=== PATIENT | male | born 1970 | race Caucasian/White ===

== ENCOUNTER 2025-07-02 14:57 | Emergency (ER) | payer OTHER, SELFPAY ==
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
--- NOTE | ~2025-07-02 | XR_ITS ---
EXAMINATION: XR ankle LT min 3V DATE: 07/02/2025 15:52 INDICATION: Rolled ankle. Pain and swelling TECHNIQUE: 4 images of the left ankle were obtained COMPARISON: None. FINDINGS: Mildly displaced fracture of the base of the fifth metatarsal with adjacent soft tissue swelling. Talar dome is unremarkable. Soft tissue swelling about the left ankle. There is a 6 x 2 mm ossific density about the distal tip of the lateral malleolus. Differential includes osteophyte or avulsion fracture of indeterminate age. Correlate for point tenderness. Small plantar calcaneal spur. Bones appear osteopenic. Degenerative change in the dorsum of the midfoot and hindfoot. Indeterminant 2 cm lucency in the anterior calcaneus. IMPRESSION: 1. Mildly displaced fracture of the base of the fifth metatarsal with adjacent soft tissue swelling. 2. There is a 6 x 2 mm ossific density about the distal tip of the lateral malleolus. Differential includes osteophyte or avulsion fracture of indeterminate age. Correlate for point tenderness. 3. Indeterminant 2 cm lucency in the anterior calcaneus. Reviewed, dictated and finalized at location Q. IMPRESSION: 1. Mildly displaced fracture of the base of the fifth metatarsal with adjacent soft tissue swelling. 2. There is a 6 x 2 mm ossific density about the distal tip of the lateral mall eolus. Differential includes osteophyte or avulsion fracture of indeterminate a ge. Correlate for point tenderness. 3. Indeterminant 2 cm lucency in the anterior calcaneus.
--- OUTSIDE RECORDS SUMMARY | 2025-07-02 07:39 | XMS_ITS | Encounter Summary ---
Author Organization [facility] Healthcare Address [address] [place] [address] Care Team Providers Care Damage Assessor Name Role Phone Louis Ley PT Unavailable Unavailable Luis Strange NP Unavailable [phone] Rod uDran MD Primary Care Provi gabby Reason for Referral * MRI/CAT/PET Scan (Routine) - Pending Review Specialty Diagnoses / Procedures Referred By Zoey diaz Referred To Contact Radiology Diagnoses Vestibular schwannoma (HCC) Procedures Radiology Event Bogdan Nguyen MD [address] [address] Phone: tel: fax: Referral ID Status Reason Start Date Expiration Date V isits Requested Visits Authorized [id number] Pending Review 07/02/2025 08/01/2026 1 1 * MRI/CAT/PET Scan (Routine) - Closed Specialty Diagnoses / Procedures Referred By Zoey diaz Referred To Contact Radiology Diagnoses Vestibular schwannoma (HCC) Procedures MRI Internal Auditory Canal incl Brain W WO Martín Arroyo MD [address] [address] Phone: tel: fax: [address] [phone] Referral ID Status Reason Start Date Expiration Date Visits Re quested Visits Authorized [id number] Closed 06/29/2024 07/29/2025 1 1 Reason for Visit * MRI/CAT/PET Scan (Routine) - Closed Specialty Diagnoses / Procedures Referred By Zoey t Referred To Contact Radiology Diagnoses Vestibular schwannoma (HCC) Procedures MRI Internal Auditory Canal incl Brain W WO Contrast Martín Batres MD [address] [place] [address] Phone: tel: fax: [address] [phone] Referral ID Status Reason Start Date Expiration Date Visits Re quested Visits Authorized [id number] Closed 06/29/2024 07/29/2025 1 1 Encounter Details Date Type Department Care Team (Latest Contact Info) Description 07/02/2025 7:39 AM CDT Hospital Encounter [facility] [address] [place] [address] Vestibular schwannoma (HCC) Social History Tobacco Use Types Packs/Day Years Used Date Smoking Tobacco: Never Smokeless Tobacco: Never Alcohol Use Standard Drinks/Week Comments Yes 0 (1 standard drink = 0.6 oz pur e alcohol) AUDIT-C Answer Date Recorded Q1: How often do you have a drink containing alc ohol? 2-4 times a month 06/22/2023 Q2: How many drinks containi ng alcohol do you have on a typical day when you are drinking? 7 to 9 06/22/2023 Frequency of Binge Drinking Not on file 05/29 PHQ-2 Answer Date Recorded PHQ-2 Total Score (If total score is 3 or more points, staff should administer the PHQ-9) 0 08/21/2024 Personal Safety Answer Date Recorded Have you ever been in or are you currently in a harmful physical or emotional relationship or is someone making you feel afraid or unsafe? 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 Gender Identity Not on file Sexual Orientation Not on file documented as of this encounter Plan of Treatment Not on file documented as of this encounter Procedures Procedure Name Priority Date/Time Associated Diagnosis Comments RADIOLOGY EVENT Schedule Routine, Read Routine (OP Routine) 07/02/2025 10:13 AM CDT Vestibular schwannoma (HCC) MRI INTERNAL AUDITORY CANAL INCL BRAIN W WO CONTRAST Schedule Routine, Read Routine (OP Routine) 07/02/2025 10:13 AM CDT Vestibular schwannoma (HCC) documented in this encounter Results * Radiology Event (07/02/2025 10:13 AM CDT) Anatomical Region Laterality Modality Magnetic Resonan ce 07/02/2025 11:5 9 AM CDT Impressions 07/02/2025 12:07 PM CDT Left ankle musculoskeletal injury as above while getting off a MRI table, following completion of an outpatient MRI. Instructions given to patient regarding event: yes Dictated by: Bogdan Nguyen MD The radiology attending physician has personally reviewed this study, and had reviewed and/or edited this written report and agrees with it. Electronically signed by: Rickey Jonas M.D., MPH Narrative 07/02/2025 12:07 PM CDT EXAMINATION: General Radiology Event Report DATE of EVENT: 07/02/2025 I was asked to see Vik Capone after a left ankle injury. Event: This was a other, see below: The patient underwent a MRI of the internal auditory canals on [facility] this morning. The patient reported that while getting off the MRI table, he rolled his left ankle. He stated that he had pain primarily on the lateral side of his left ankle as well as the dorsum of his left foot, which was worse with palpation and with weightbearing. His vitals were within normal limits. On exam, he had tenderness primarily over the lateral malleolus extending to the dorsum of the foot. The patient had 4 out of 5 strength in dorsiflexion and plantarflexion of his left ankle. He was neurovascularly intact in the left ankle and foot. He had a mild limp while walking around the MRI holding area. There was no overlying erythema. There was 1+ edema over the left lateral ankle. 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 He was offered 3 options: further evaluation in the emergency department, outpatient evaluation in a urgent care, or close follow-up with his primary care physician. After discussing the benefits of each, the patient and his elected for close follow up with his primary care physician. The patient was provided with ice packs for cooling. He was brought to his next appointment at [facility] by wheelchair by the staff. Actions: See above The highest level of care provided Vital performed/Monitoring Procedure Note Rickey Jonas MD - 07/02/2025 EXAMINATION: General Radiology Event Report DATE of EVENT: 07/02/2025 I was asked to see Vik Capone after a left ankle injury. Event: This was a other, see below: The patient underwent a MRI of the internal auditory canals on [facility] this morning. The patient reported that while getting off the MRI table, he rolled his left ankle. He stated that he had pain primarily on the lateral side of his left ankle as well as the dorsum of his left foot, which was worse with palpation and with weightbearing. His vitals were within normal limits. On exam, he had tenderness primarily over the lateral malleolus extending to the dorsum of the foot. The patient had 4 out of 5 strength in dorsiflexion and plantarflexion of his left ankle. He was neurovascularly intact in the left ankle and foot. He had a mild limp while walking around the MRI holding area. There was no overlying erythema. There was 1+ edema over the left lateral ankle. 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 He was offered 3 options: further evaluation in the emergency department, outpatient evaluation in a urgent care, or close follow-up with his primary care physician. After discussing the benefits of each, the patient and his elected for close follow up with his primary care physician. The patient was provided with ice packs for cooling. He was brought to his next appointment at [facility] by wheelchair by the staff. Actions: See above The highest level of care provided Vital performed/Monitoring IMPRESSION: Left ankle musculoskeletal injury as above while getting off a MRI table, following completion of an outpatient MRI. Instructions given to patient regarding event: yes Dictated by: Bogdan Nguyen MD The radiology attending physician has personally reviewed this study, and had reviewed and/or edited this written report and agrees with it. Electronically signed by: Rickey Jonas M.D., MPH Bogdan Nguyen MD IMG CT PROCEDURES Final Result * MRI Internal Auditory Canal incl Brain W WO Contrast (07/02/2025 10:13 AM CDT) Anatomical Region Laterality Modality Head and Neck N/A Magnetic Resonan ce 07/02/2025 10:3 1 AM CDT Impressions 07/02/2025 10:48 AM CDT No significant interval change in size of left vestibular schwannoma. Dictated by: Aldo Adair M.D. The radiology attending physician has personally reviewed this study, and had reviewed and/or edited this written report and agrees with it. Electronically signed by: Chayo Vick M.D. Narrative 07/02/2025 10:48 AM CDT EXAMINATION: Magnetic resonance imaging (MRI) of the brain and brainstem without and with contrast HISTORY: Vestibular schwannoma TECHNIQUE: Multiplanar multi-weighted MRI of the brain and brainstem was performed without and with intravenous contrast using the general brain protocol. Additionally sequences detailing the internal auditory canals and posterior fossa were acquired as a part of the internal auditory canal protocol. Contrast information: 26 mL Gadoterate Meglumine IV COMPARISON: MRI 06/29/2024 FINDINGS: No significant change in size of enhancing ovoid lesion within the left internal auditory canal measuring approximately 6 x 11 x 7 mm (AP by transverse by craniocaudal), previously 5 x 9 x 7 mm, compatible with a vestibular schwannoma. The lesion extends to the IAC fundus. The right internal auditory canal and bilateral cerebellopontine angles are unremarkable. The upper cervical spinal cord and spine are normal. The scalp and calvarium are normal. The superior sagittal sinus demonstrates normal venous flow. The corpus callosum is normal in shape and signal intensity. The posterior fossa is unremarkable. The pituitary and sella are normal. The brainstem and craniocervical junction are unremarkable. Diffusion weighted images reveal no hyperintensities to suggest acute cerebral infarction. The susceptibility weighted sequences reveal no evidence of acute or chronic hemorrhage. The ventricles are normal in size and position without evidence of hydrocephalus. Bilateral maxillary retention cysts, larger on the left. The visualized portions of the mastoids are unremarkable. The orbits appear normal. Normal flow voids are demonstrated in the carotid arteries and basilar artery. Procedure Note Chayo Vick MD - 07/02/2025 EXAMINATION: Magnetic resonance imaging (MRI) of the brain and brainstem without and with contrast HISTORY: Vestibular schwannoma TECHNIQUE: Multiplanar multi-weighted MRI of the brain and brainstem was performed without and with intravenous contrast using the general brain protocol. Additionally sequences detailing the internal auditory canals and posterior fossa were acquired as a part of the internal auditory canal protocol. Contrast information: 26 mL Gadoterate Meglumine IV COMPARISON: MRI 06/29/2024 FINDINGS: No significant change in size of enhancing ovoid lesion within the left internal auditory canal measuring approximately 6 x 11 x 7 mm (AP by transverse by craniocaudal), previously 5 x 9 x 7 mm, compatible with a vestibular schwannoma. The lesion extends to the IAC fundus. The right internal auditory canal and bilateral cerebellopontine angles are unremarkable. The upper cervical spinal cord and spine are normal. The scalp and calvarium are normal. The superior sagittal sinus demonstrates normal venous flow. The corpus callosum is normal in shape and signal intensity. The posterior fossa is unremarkable. The pituitary and sella are normal. The brainstem and craniocervical junction are unremarkable. Diffusion weighted images reveal no hyperintensities to suggest acute cerebral infarction. The susceptibility weighted sequences reveal no evidence of acute or chronic hemorrhage. The ventricles are normal in size and position without evidence of hydrocephalus. Bilateral maxillary retention cysts, larger on the left. The visualized portions of the mastoids are unremarkable. The orbits appear normal. Normal flow voids are demonstrated in the carotid arteries and basilar artery. IMPRESSION: No significant interval change in size of left vestibular schwannoma. Dictated by: Aldo Adair M.D. The radiology attending physician has personally reviewed this study, and had reviewed and/or edited this written report and agrees with it. Electronically signed by: Chayo Vick M.D. Martín Batres MD [facility] [place] PROCEDURES Enriqueta l Result documented in this encounter Visit Diagnoses Diagnosis Vestibular schwannoma (HCC) Benign neoplasm of cranial nerves documented in this encounter Administered Medications Inactive Administered Medications - up to 3 most recent administrations Medication Order MAR Action Action Date Dose Rate Site gadoterate meglumine injection 26 mL 26 mL, intravenous, Once in imaging, contrast, Starting on 07/02/25 at 0919, For 1 dose Contrast Given 07/02/2025 9:19 AM CDT 26 mL documented in this encounter Orders Medications Ordered That Tyson ht Not Have Been Administered Count Last Ordered Date First Ordered Date gadoterate meglumine injection 26 mL 1 02/2025 documented in this encounter Care Teams Damage Assessor Relationship Specialty Start Date End Date Rod Duran MD [address] [place] [address] PCP - General Family Practice 07/02/25 Louis Ley, PT Physical Therapist Physical Therapy 04/20/22 Luis Strange, ROBERTH [address] [place] [address] [address] [place] [address] Nurse Practitioner Nurse Practitioner 05/07/22 documented as of this encounter
--- OUTSIDE RECORDS SUMMARY | 2025-07-02 08:29 | XMS_ITS | Encounter Summary ---
Author Organization [facility] Healthcare Address [address] [place] [address] Care Team Providers Care Perennial House Manager Name Role Phone Louis Ley PT Unavailable Unavailable Luis Strange NP Unavailable Rod Duran MD Primary Care Provi gabby Reason for Referral * Diagnostic Imaging (Routine) - Closed Specialty Diagnoses / Procedures Referred By Zoey diaz Referred To Contact Diagnoses Vestibular schwannoma (HCC) Procedures XR Hand Left 2 Views Martín Batres MD [address] [address] Phone: tel: fax: [address] [address] Referral ID Status Reason Start Date Expiration Date Visits Re quested Visits Authorized [id number] Closed 07/02/2025 08/01/2026 1 1 Reason for Visit * Diagnostic Imaging (Routine) - Closed Specialty Diagnoses / Procedures Referred By Zoey diaz Referred To Contact Diagnoses Vestibular schwannoma (HCC) Procedures XR Hand Left 2 Views Martín Batres MD [address] [address] Phone: tel: fax: [address] [phone] Referral ID Status Reason Start Date Expiration Date Visits Re quested Visits Authorized [id number] Closed 07/02/2025 08/01/2026 1 1 Encounter Details Date Type Department Care Team (Latest Contact Info) Description 07/02/2025 8:29 AM CDT Hospital Encounter [facility]) [facility] [place] [address] Vestibular schwannoma (HCC) Social History Tobacco Use [...] on file 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 Gender Identity Not on file Sexual Orientation Not on file documented as of this encounter Plan of Treatment Not on file documented as of this encounter Procedures Procedure Name Priority Date/Time Associated Diagnosis Comments XR HAND LEFT 2 VIEWS Schedule Routine, Read Routine (OP Routine) 07/02/2025 8:41 AM CDT Vestibular schwannoma (HCC) documented in this encounter Results * XR Hand Left 2 Views (07/02/2025 8:41 AM CDT) Anatomical Region Laterality Modality Upper Extremities, Hand Left Computed Radiography 07/02/2025 10:2 9 AM CDT Impressions 07/02/2025 10:30 AM CDT Small radiodense BB at the volar side of the 3rd metacarpal soft tissue. Dictated by: Matti Iraheta M.D. The radiology attending physician has personally reviewed this study, and had reviewed and/or edited this written report and agrees with it. Electronically signed by: Kvng Sneed M.D. Narrative 07/02/2025 10:30 AM CDT EXAMINATION: XR HAND LEFT 2 VIEWS HISTORY: Evaluation of foreign body. COMPARISON: No prior relevant examinations are available for comparison. FINDINGS: 2 views of the left elbow were submitted for interpretation. There is a small radiodense BB at the volar side of the 3rd metacarpal soft tissue. 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 No acute fracture or dislocation of left hand. Procedure Note Kvng Sneed MD - 07/02/2025 EXAMINATION: XR HAND LEFT 2 VIEWS HISTORY: Evaluation of foreign body. COMPARISON: No prior relevant examinations are available for comparison. FINDINGS: 2 views of the left elbow were submitted for interpretation. There is a small radiodense BB at the volar side of the 3rd metacarpal soft tissue. 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 No acute fracture or dislocation of left hand. IMPRESSION: Small radiodense BB at the volar side of the 3rd metacarpal soft tissue. Dictated by: Matti Iraheta M.D. The radiology attending physician has personally reviewed this study, and had reviewed and/or edited this written report and agrees with it. Electronically signed by: Kvng Sneed M.D. Tommie Costa MD IMG XR PROCEDURES Final Result documented in this encounter Visit Diagnoses Diagnosis Vestibular schwannoma (HCC) Benign neoplasm of cranial nerves documented in this encounter Care Teams Perennial House Manager Relationship Specialty Start Date End Date Rod Duran MD [address] [place] [address] PCP - General Family Practice 07/02/25 Louis Ley, ARNOLD Physical Therapist Physical Therapy 04/20/22 Luis Strange, ROBERTH [address] [place] [address] [address] [place] [address] Nurse Practitioner Nurse Practitioner 05/07/22 documented as of this encounter
--- OUTSIDE RECORDS SUMMARY | 2025-07-02 09:00 | XMS_ITS | Encounter Summary ---
Author Organization [facility] Address [address] [place] [address] Phone Care Team Providers Care Race Starter Name Role Phone Louis Ley PT Unavailable Unavailable Luis Strange NP Unavailable [phone] Rod Duran MD Primary Care Provi gabby Encounter Details Date Type Department Care Team (Latest Contact Info) Description 07/02/2025 9:00 AM CDT Procedure visit [facility] Medicine Otolaryngology [address] [facility] 11th [place] [address] [place] [address] Sensorineural hearing loss, asymmetrical (Primary Dx) Social History Tobacco Use Types Packs/Day Years [...] on file 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 - 07/02/2025 9:00 AM CDT Images from the original note were not included. Procedures PATIENT: Vik Capone : 1970 TYPE OF SERVICE: Audiologic Evaluation DATE OF SERVICE: 07/02/2025 Referral Source: Jerzy Mcgovern MD Audiogram completed per physician referral. See scanned audiogram for results. Detailed medical history was obtained by medical claims analyst and reviewed - see notes on audiogram for brief history. Results were reviewed with the patient by irrigator valve pipe and/or physician. Tests performed: basic comprehensive audiometry documented in this encounter Plan of Treatment Not on file documented as of this encounter Procedures Procedure Name Priority Date/Time Associated Diagnosis Comments AUDBASE RESULTS 07/02/2025 10:44 AM CDT documented in this encounter Results * AudBase Results (07/02/2025 10:44 AM CDT) Provider Scanning AUDIOLOGY SERVICES ORDERABLES Final Result documented in this encounter Visit Diagnoses Diagnosis Sensorineural hearing loss, asymmetrical- Primary documented in this encounter Care Teams Race Starter Relationship Specialty Start Date End Date Rod Duran MD [address] [place] [address] PCP - General Family Practice 07/02/25 Louis Ley, PT Physical Therapist Physical Therapy 04/20/22 Luis Strange NP [address] [place] [address] [address] [place] [address] Nurse Practitioner Nurse Practitioner 05/07/22 documented as of this encounter
--- OUTSIDE RECORDS SUMMARY | 2025-07-02 09:20 | XMS_ITS | Encounter Summary ---
Author Organization [facility] Address [address] [place] [address] Phone Care Team Providers Care Hospital Pharmacist Name Role Phone Louis Ley PT Unavailable Unavailable Luis Strange BRIDAL SERVICE SALES AND MANAGEMENT Unavailable [phone] Rod Duran MD Primary Care Provi gabby Reason for Referral * MRI/CAT/PET Scan (Routine) - Pending Review Specialty Diagnoses / Procedures Referred By Zoey diaz Referred To Contact Radiology Diagnoses Vestibular schwannoma (HCC) Procedures MRI Internal Auditory Canal incl Brain W WO Contrast Jerzy Mcgovern MD [address] [place] [address] Phone: tel: fax: [facility] [address] [place] [address] Referral ID Status Reason Start Date Expiration Date V isits Requested Visits Authorized [id number] Pending Review 07/02/2025 08/01/2026 1 1 * Consultation (Routine) - Pending Review Specialty Diagnoses / Procedures Referred By Zoey diaz Referred To Contact Audiology Diagnoses Vestibular schwannoma (HCC) Jerzy Mcgovern MD [address] [place] [address] Phone: tel: fax: [facility] (All Locations) Referral ID Status Reason Start Date Expiration Date Visits Requested Visits Authorized [id number] Pending Review Specialty Services Required 07/02/2025 08/01/2026 1 1 Question Answer Please select the performing region: [facility] (All Locations) [[id number]] Are you referring for hearing device consultation? No Is this for Vestibular Testing? Yes Type? Specific Testing:, Standard Vestibular Testing: VOG/Rotational Chair/vHit (2 hours) What Specific Vestibular Testing Do You Need? Vestibular Evoked Myogenic Potential (VEMP) # of visits: 1 Comments VS Reason for Visit * Reason Comments Follow-up MRI today Encounter Details Date Type Department Care Team (Late st Contact Info) Description 07/02/2025 9:20 AM CDT Office Visit [facility] ([facility] - 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 Gender Identity Not on file Sexual Orientation Not on file documented as of this encounter Last Filed Vital Signs Vital Sign Reading Time Taken Comments Blood Pressure - - Pulse - - Temperature - - Respiratory Rate - - Oxygen Saturation - - Inhaled Oxygen Concentration - - Weight 136.1 kg (300 lb) 07/02/2025 11:10 AM CDT Height 190.5 cm (6' 3) 07/02/2025 11:10 AM CDT Body Mass Index 37.5 07/02/2025 11:10 AM CDT documented in this encounter Plan of Treatment Scheduled Orders Name Type Priority Associated Diagnoses Orde r Schedule MRI Internal Auditory Canal incl Brain W WO Contrast Imaging Schedule Routine, Read Routine (OP Routine) Vestibular schwannoma (HCC) Expected: 07/02/2026, Expires: 09/30/2026 Scheduled Referrals Name Type Priority Associated Diagnoses Order Schedule Ambulatory referral to Audiology (ADULT) Outpatient Referral Routine Vestibular schwannoma (HCC) Expected: 07/16/2025 (Approximate), Expires: 07/02/2026 documented as of this encounter Visit Diagnoses Diagnosis Vestibular schwannoma (HCC)- Primary Benign neoplasm of cranial nerves documented in this encounter Care Teams Hospital Pharmacist Relationship Specialty Start Date End Date Rod Duran MD [address] [place] [address] PCP - General Family Practice 07/02/25 Louis Ley PT Physical Therapist Physical Therapy 04/20/22 Luis Strange NP [address] [place] [address] [address] [place] [address] Nurse Practitioner Nurse Practitioner 05/07/22 documented as of this encounter
[2025-07-02 15:10] VITALS: BP 137/92; PULSE 95; RESP 20; TEMP 36.6; O2SAT 97
--- NOTE | 2025-07-02 15:35 | ED_ITS ---
HPI - Extremity Injury (Lower) General Chief Complaint: Extremity Injury, Lower Stated Complaint: left foot injury Time Seen by Provider: 07/02/25 15:30 Source: patient, family () and RN notes reviewed Mode of arrival: ambulatory Limitations: no limitations History of Present Illness HPI Narrative: 55-year-old male patient presents today complaining of pain to the lateral left ankle and foot. Today he was at [facility] getting off an MRI table when he fainted, rolling his ankle/foot. He did not have a head injury. Continued with the rest of his appointments today but wanted to come in for e valuation of his ankle and foot. Denies numbness or tingling. Currently rates his pain 04/05. He has taken some Aleve today with some improvement. Related Data Home Medications ?Medication ?Instructions ?Recorded ?Confirmed ?Last Taken ?Type amlodipine 10 mg tablet mg 07/02/25 Unknown History triamterene 37.5 tablet 07/02/25 Unknown His tory mg-hydrochlorothiazide 25 mg tablet Allergies Allergy/AdvReac Type Severity Reaction Status Date / Time No Known Allergies Allergy Verified 07/02/25 15:11 [facility], [facility] Past Medical History Medical History (Updated 07/02/25 @ 16:28 by Cristel Olguin, [facility], ) Hypertension Acoustic neuroma Comments At time of signature, I have reviewed and agree with nursing past medical, surgical, social and family history unless otherwise noted. Please see nursing chart for further information. There is no relevant family history pertinent to the presenting complaint Exam Narrative: GENERAL: Well-appearing, well-nourished, and in no acute distress. HEAD: Normocephalic, atraumatic. EYES: EOMI. No redness or drainage. Conjunctivae normal. ENT: Mucous membranes pink and moist. NECK: Normal AROM. CHEST: No respiratory distress. EXTREMITIES: Left lower leg: Mild to moderate swelling of the lateral malleolus extending to the mid lateral foot with mild ecchymosis. These areas are tender to palpation as well. No deformity noted. Distal sensation intact. Capillary refill normal. Pedal pulse normal. Full range of motion of toes and ankle. No tenderness to the remainder of the foot or medial ankle. SKIN: Warm, dry, no rash. Capillary refill normal. Normal skin turgor. NEURO: No focal deficits. Alert and oriented x3. Gait steady. PSYCH: Normal affect. No signs of depression or anxiety. Course Course Level of Care: Express Care Visit Vital Signs Vital signs: Vital Signs Temperature 97.9 F 07/02/25 15:10 Pulse Rate 95 07/02/25 15:10 Respiratory Rate 20 07/02/25 15:10 Blood Pressure 137/92 H 07/02/25 15:10 Pulse Oximetry 97 07/02/25 15:10 Oxygen Delivery Room Air 07/02/25 15:10 Temperature 97.9 F 07/02/25 15:10 Pulse Rate 95 07/02/25 15:10 Respiratory Rate 20 07/02/25 15:10 Blood Pressure 137/92 H 07/02/25 15:10 Pulse Oximetry 97 07/02/25 15:10 Oxygen Delivery Room Air 07/02/25 15:10 Reviewed MDM - Extremity Injury (Lower) MDM Narrative Medical decision making narrative: 55-year-old male patient presents today complaining of pain to the lateral left ankle and foot. Today he was at [facility] getting off an MRI table when he fainted, rolling his ankle/foot. He did not have a head injury. Continued with the rest of his appointments today but wanted to come in for evaluation of his ankle and foot. Took Aleve with some improvement. Upon exam, patient has moderate swelling about the ankle, tenderness and ecchymosis laterally extending to the lateral foot. Neurovascularly intact. X-ray shows mildly displaced fracture of base of the 5th metatarsal as well an avulsion fracture of the lateral malleolus. Short leg OCL applied, crutches provided. Patient has seen Dr. Will previously and would like to return to him for this injury. Disc and reports provided. Vital signs stable. Anticipatory guidance given. Differential Diagnosis Differential diagnosis: Likely ankle sprain and strain, ankle fracture and other (Foot sprain, foot fracture, contusion) Imaging Data Radiologist's impression: ITS Impressions Ankle X-Ray 07/02/25 15:53 IMPRESSION: 1. Mildly displaced fracture of the base of the fifth metatarsal with adjacent s oft tissue swelling. 2. There is a 6 x 2 mm ossific density about the distal tip of the lateral malleolus. Differential includes osteophyte or avulsion fracture of indeterminate age. Correlate for point tenderness. 3. Indeterminant 2 cm lucency in the anterior calcaneus. Foot X-Ray 07/02/25 15:55 Impression: Fifth metatarsal fracture Critical Care Time Critical Care Time Critical Care Time: No Discharge Plan Discharge Clinical Impression: Closed fracture of fifth metatarsal bone of left foot Qualifiers: Encounter type: initial encounter Fracture alignment: displaced Qualified Code(s): S92.352A - Displaced fracture of fifth metatarsal bone, left foot, initial encounter for closed fracture Avulsion fracture of lateral malleolus of left fibula Qualifiers: Encounter type: initial encounter Fracture type: closed Qualified Code(s): S82.62XA - Displaced fracture of lateral malleolus of left fibula, initial encounter for closed fracture Patient Disposition: Home Condition: Stable Instructions: Foot Fracture in Adults (ED), Avulsion Fracture (ED) Additional Instructions: Your x-ray shows fracture in your foot as well as a small chip fracture on the outside of your ankle. You have been placed in a temporary splint. Please keep this dry and intact until follow-up with orthopedics. Elevate and ice your foot/ankle. Take Tylenol or ibuprofen for pain, if able. Patient Language: [place] Prescriptions: No Action amlodipine 10 mg tablet triamterene-hydrochlorothiazid 37.5-25 mg tablet Follow-up/Referrals: Roger,Rod Angelo MD [Primary Care Provider, Unknown] Stand Alone Forms: Work/School Release IP Time of Disposition: 16:43
--- OUTSIDE RECORDS SUMMARY | 2025-07-02 15:44 | XMS_ITS | Clinical Summary ---
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 7 Active amoxicillin (AMOXIL) 875 MG Tablet Take 875 mg by mouth 2 times daily. 0 Active mupirocin (BACTROBAN) 2 % OintmentIndicat ions:Laceration of right hand without foreign body, initial encounter Apply topically to right hand twice daily for 7 days 1 Tube 0 Active Social History Tobacco Use Types Packs/Day Years Used Date Smoking Tobacco: Never Smokeless Tobacco: Never Sex and Gender Information Value Date Recorded Sex Assigned at Not on file Legal Sex Male 3:12 AM [employer] Gender Identity Not on file Sexual Orientation Not on file Last Filed Vital Signs Vital Sign Reading Time Taken Comments Blood Pressure 144/99 04/21/2020 6:44 PM CDT Pulse 93 04/21/2020 6:44 PM CDT Temperature 37 C (98.6 F) 04/21/2020 6:44 PM CDT Respiratory Rate 16 04/21/2020 6:44 PM CDT Oxygen Saturation 97% 04/21/2020 6:44 PM CDT Inhaled Oxygen Concentration - - Weight 127 kg (280 lb) 04/21/2020 6:44 PM CDT Height - - Body Mass Index - - Plan of Treatment Health Maintenance Due Date Last Done Comments Hepatitis C Virus (HCV) Screening 1969 TdaP Immunization 1969 Hepatitis B Immunization (1 of 3 - 19+ 3-dose series) 1988 Cologuard 2014 Colonoscopy 2014 Colorectal Cancer Screening 2014 Immunochemical Fecal Occult Blood 2014 Pneumococcal Immunization (5 0+ years) (1 of 1 - PCV) 2019 Zoster Immunization (1 of 2) 2019 Influenza Immunization (#1) 05/28/202508/28, 06/30/2019 SARS-COV-2 Immunization (3 - 2024- season) 2025 07/20/2021, 11/30/2020 Respiratory Syncytial Virus (RSV) Immunization (Adult) (1 - 1-dose 75+ series) 2044 Human Papillomavirus (HPV) Immunization Aged Out No longer eligible b ased on patient's age to complete this topic Meningococcal Immunization (ACWY) Aged Out No longer eligible b ased on patient's age to complete this topic Rotavirus Immunization Aged Out No lo nger eligible based on patient's age to complete this topic Care Teams Cattle Sprayer Relationship Specialty Start Date End Date Provider, None [place] PCP - General 04/23/20
--- OUTSIDE RECORDS SUMMARY | 2025-07-02 15:44 | XMS_ITS | Clinical Summary ---
Author Organization [facility] Address [address] [place] [id number] Care Team Providers Care Supervisor Rod Placing Name Role Phone Louis Ley PT Unavailable Unavailable Luis Strange NP Unavailable [phone] Rod Duran MD Primary Care Provi gabby Allergies No known active allergies Medications tadalafil (CIALIS) 20 mg tablet take 1 tablet by oral route once a day prn 0 0 7 Active multivitamin capsule Take 1 capsule by mouth daily Active amLODIPine (NORVASC) 10 mg tabletIndications :Essential hypertension TAKE 1 TABLET(10 MG) BY MOUTH DAILY 30 tablet 11 4 Active triamterene-hydro CHLOROthiazide 37.5-25 mg per tablet TAKE 1 TABLET BY MOUTH DAILY 30 tablet 11 4 Active azithromycin (ZITHROMAX) 250 mg tabletIndications :Upper respiratory tract infection, unspecified type Take 2 tablets the first day, then 1 tablet daily for 4 days. 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 Decreased hearing of both ears 11/01/2023 Assessment & Plan (11/01/2023 8:56 AM VALVE ASSEMBLER): Protect Hearing MRI scan - if negative will recommend hearing aids Cancel out ringing noise with radio, loud fan, or other white noise Tinnitus of both ears 11/01/2023 Assessment & Plan (11/01/2023 8:57 AM VALVE ASSEMBLER): Protect Hearing MRI scan - if negative will recommend hearing aids Cancel out ringing noise with radio, loud fan, or other white noise Avoid Caffeine and extra salt ASNHL (asymmetrical sensorineural hearing loss) 11/01/2023 Assessment & Plan (11/01/2023 8:55 AM VALVE ASSEMBLER): Protect Hearing MRI scan - if negative will recommend hearing aids Cancel out ringing noise with radio, loud fan, or other white noise Primary osteoarthritis of left knee 06/08/2023 Chronic pain of left knee 02/03/2023 Physical exam, annual 02/03/2023 Assessment & Plan (08/21/2024 9:43 AM VALVE ASSEMBLER): Discussed lifestyle modifications, diet and exercise. Routine blood work ordered/reviewed today. Yearly vision and dental examinations. Assessment & Plan (02/03/2023 9:29 AM CDT): Discussed lifestyle modifications, diet and exercise. Routine blood work ordered/reviewed today. Yearly vision and dental examinations. Class 2 obesity due to exces s calories without serious comorbidity with body mass index (BMI) of 35.0 to 35.9 in adult 02/03/2023 Assessment & Plan (08/21/2024 9:43 AM VALVE ASSEMBLER): Wt Readings from Last 3 Encounters: 08/21/24 (!) 140.3 kg (309 lb 4.8 oz) 11/01/23 (!) 139 kg (306 lb 8 oz) 08/23/23 135.2 kg (298 lb) BMI Readings from Last 3 Encounters: 08/21/24 37.67 kg/m 11/01/23 37.32 kg/m 08/23/23 36.29 kg/m Not at goal of bmi <30 Continue diet and exercise BMI Follow-up includes: nutrition counseling and exercise counseling. Assessment & Plan (08/16/2023 9:41 AM VALVE ASSEMBLER): Wt Readings from Last 3 Encounters: 08/16/23 135.5 kg (298 lb 11.2 oz) 07/13/23 133.5 kg (294 lb 6.4 oz) 06/29/23 133.2 kg (293 lb 10.4 oz) BMI Readings from Last 3 Encounters: 08/16/23 36.37 kg/m 07/13/23 35.84 kg/m 06/29/23 35.74 kg/m Not at goal of bmi <30 Continue diet and exercise BMI Follow-up includes: nutrition counseling and exercise counseling. Assessment & Plan (06/03/2023 2:54 PM CDT): Wt Readings from Last 3 Encounters: 06/03/23 (!) 136.3 kg (300 lb 6.4 oz) 05/14/23 132.5 kg (292 lb) 04/09/23 132.6 kg (292 lb 6.4 oz) BMI Readings from Last 3 Encounters: 06/03/23 36.58 kg/m 05/14/23 35.54 kg/m 04/09/23 35.59 kg/m Not at goal of bmi <30 Continue diet and exercise BMI Follow-up includes: nutrition counseling and exercise counseling. Assessment & Plan (02/03/2023 9:33 AM CDT): Wt Readings from Last 3 Encounters: 02/03/23 133.8 kg (295 lb) 08/03/22 126.6 kg (279 lb) 06/22/22 126.6 kg (279 lb) BMI Readings from Last 3 Encounters: 02/03/23 35.91 kg/m 08/03/22 33.96 kg/m 06/22/22 33.96 kg/m Not at goal of bmi <30 Continue diet and exercise BMI Follow-up includes: nutrition counseling and exercise counseling. Primary osteoarthritis of right knee 04/15/2022 Overview (04/15/2022): Added automatically from request for surgery [id number] Fatty liver 04/02/2022 Assessment & Plan (04/02/2022 3:46 PM CDT): Stable LFTs would consider starting a statin due to age, fatty liver and hypertension, has also fm hx of cardiac disease Currently acvsd risk is low Family history of cardiac disorder 12/25/2021 Essential hypertension 12/25/2021 Assessment & Plan (08/21/2024 9:43 AM VALVE ASSEMBLER): BP Readings from Last 3 Encounters: 08/21/24 118/80 11/01/23 131/87 08/23/23 132/86 Vitals BP 118/80 (BP Location: Left arm, Patient Position: Sitting) Pulse 87 Resp 16 Ht 193 cm (6' 3.98) Wt (!) 140.3 kg (309 lb 4.8 oz) SpO2 95% BMI 37.67 kg/m Lab Results Component Value Date POTASSIUM 3.6 06/03/2023 At goal Continue norvasc 10 mg every day, triamterene-hctz 37.5-25 mg every day Assessment & Plan (08/16/2023 9:41 AM VALVE ASSEMBLER): BP Readings from Last 3 Encounters: 08/16/23 116/74 07/13/23 113/76 06/29/23 138/78 Vitals BP 116/74 (BP Location: Left arm, Patient Position: Sitting) Pulse 94 Resp 16 Ht 193 cm (6' 3.98) Wt 135.5 kg (298 lb 11.2 oz) SpO2 98% BMI 36.37 kg/m Lab Results Component Value Date POTASSIUM 3.6 06/03/2023 At goal Continue norvasc 10 mg every day, triamterene-hctz 37.5-25 mg every day Assessment & Plan (06/03/2023 2:47 PM CDT): BP Readings from Last 3 Encounters: 06/03/23 129/82 05/14/23 129/80 04/09/23 135/90 Vitals BP 129/82 Pulse 85 Resp 18 Ht 193 cm (6' 3.98) Wt (!) 136.3 kg (300 lb 6.4 oz) SpO2 96% BMI 36.58 kg/m Lab Results Component Value Date POTASSIUM 4.1 02/03/2023 At goal Continue norvasc 10 mg every day, triamterene-hctz 37.5-25 mg every day Assessment & Plan (02/03/2023 9:26 AM CDT): BP Readings from Last 3 Encounters: 02/03/23 124/80 08/03/22 127/84 06/22/22 131/95 Vitals BP 124/80 (BP Location: Left arm, Patient Position: Sitting) Pulse 91 Temp 36.9 C (98.5 F) Ht 193 cm (6' 4) Wt 133.8 kg (295 lb) SpO2 95% BMI 35.91 kg/m Lab Results Component Value Date POTASSIUM 4.2 04/21/2022 At goal Continue norvasc 10 mg every day Assessment & Plan (04/02/2022 3:44 PM CDT): HPI: Condition is at goal A&P: Discussed/ordered labs, encouraged healthy, low carbohydrate lifestyle and at least 150min/week of exercise, continue on current regimen Chronic pain of both knees 12/25/2021 Obstructive sleep apnea syndrome 09/18/2020 Elevated PSA 09/18/2020 Assessment & Plan (02/03/2023 9:29 AM CDT): Recheck PSA at this ronnie Has been stable since turp Will check PSA now Resolved Problems Problem Noted Date Diagnosed Date Resolved Date Class 2 obesity with body ma ss index (BMI) of 35.0 to 35.9 in adult 02/03/2023 08/16/2023 Assessment & Plan (06/03/2023 2:37 PM CDT): Wt Readings from Last 3 Encounters: 06/03/23 (!) 136.3 kg (300 lb 6.4 oz) 05/14/23 132.5 kg (292 lb) 04/09/23 132.6 kg (292 lb 6.4 oz) BMI Readings from Last 3 Encounters: 06/03/23 36.58 kg/m 05/14/23 35.54 kg/m 04/09/23 35.59 kg/m Not at goal of bmi <30 Continue diet and exercise BMI Follow-up includes: nutrition counseling and exercise counseling. Assessment & Plan (02/03/2023 9:28 AM CDT): Wt Readings from Last 3 Encounters: 02/03/23 133.8 kg (295 lb) 08/03/22 126.6 kg (279 lb) 06/22/22 126.6 kg (279 lb) BMI Readings from Last 3 Encounters: 02/03/23 35.91 kg/m 08/03/22 33.96 kg/m 06/22/22 33.96 kg/m Not at goal of bmi <30 Continue diet and exercise BMI Follow-up includes: nutrition counseling and exercise counseling. History of prostatitis 09/18/202002/03 Encounters Date Type Department Care Team Description 07/02/2025 9:20 AM CDT Office Visit [facility] ([facility]) - [facility] Medicine ENT [address] [place] [address] 11th [place] [address] [place] [address] Jerzy Mcgovern MD Vestibular schwannoma (HCC) (Primary Dx) 07/02/2025 9:00 AM CDT Procedure visit [facility] Otolaryngology [address] [place] [address] 11th [place] [address] [place] [address] Sensorineural hearing loss, asymmetrical (Primary Dx) 07/02/2025 8:29 AM CDT Hospital Encounter [facility] [address] [place] [id number] Vestibular schwannoma (HCC) 07/02/2025 7:39 AM CDT Hospital Encounter [facility]) [address] [place] [id number] Vestibular schwannoma (HCC) 05/29/2025 Telephone [facility] Otolaryngology [address] [place] [phone] Caroline Maza, 05/29/2025 Telephone [facility] Otolaryngology [address] [place] [phone] Caroline Maza, 05/18/2025 Telephone [facility] Medicine [address] [place] [address] Carol Walker MA 04/02/2025 Telephone [facility] [address] [place] [address] Omari Will MD from Last 3 Months Immunizations Immunization Administration Dates Next Due Hep A, Adult 01/11/2017 Hep A, Unspecified 01/11/2017 Influenza, Quadrivalent, Nori l Culture-based MDCK, Preservative Free, Antibiotic Free, Intramuscular 06/30/2022 Influenza, Quadrivalent, Spl it, Preservative Free, Intramuscular 06/03/2023,09/03/2021,09/18/2020,06/30 Influenza, Unspecified 08/21/2024(Deferr ed: Patient Refused),11/25/2022(Deferred: Patient Refused),06/27/2018(Deferred: Patient Refused) Carnet de Mode (J&J) SARS-CoV-2 Vaccination 11/30/2020 Tdap 11/26/2014 ZOSTER Recombinant 02/14/2022,12/13/2021 Surgical History Surgery Date Site/Laterality Comments HAND SURGERY Left TOTAL KNEE ARTHROPLASTY 04/27/2022 - 05/27/2022 Right JOINT REPLACEMENT 05/18 & 05/19 Medical History Medical History Date Comments Hypertension Sleep apnea Tinnitus Family History Medical History Relation Name Comments Cardiomyopathy Brother 1 overweight Brother 1 Diabetes Father Iain Hypertension Father Iain Hypertension; l iving Diabetes Mother Genie Alive and well; Diabetes [facility] ; living Relation Name Status Comments Brother 1 Brother 2 Father Iain Alive Mother Genie Alive Sister Elisabeth Social History Tobacco Use Types Packs/Day Years [...] on file Legal Sex Male 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 Gender Identity Not on file Sexual Orientation Not on file Obstetrics History Last Filed Vital Signs Vital Sign Reading Time Taken Comments Blood Pressure 116/70 01/12/2025 9:57 AM CDT Pulse 100 01/12/2025 9:57 AM CDT Temperature 37.4 C (99.3 F) 01/12/2025 9:57 AM CDT Respiratory Rate 22 01/12/2025 9:57 AM CDT Oxygen Saturation 96% 01/12/2025 9:57 AM CDT Inhaled Oxygen Concentration - - Weight 136.1 kg (300 lb) 07/02/2025 11:10 AM CDT Height 190.5 cm (6' 3) 07/02/2025 11:10 AM CDT Body Mass Index 37.5 07/02/2025 11:10 AM CDT Plan of Treatment Health Maintenance Due Date Last Done Comments Pneumococcal vaccine <65 (1 of 2 - PCV) 1988 DTaP/Tdap/Td Vaccine (2 - Td or Tdap) 11/26/2024 11/26/2014 Covid-19 Vaccine (4 - 2024-2 6 season) 2025 07/20/2022, 07/20/2021, 11/30/2020 Influenza Vaccine (#1) 2025 , 06/30/2022, 09/03/2021, Additional history exists Depression Screening 08/21/2025 08/21/2024, 08/16/2023, 06/03/2023, Additional history exists Prostate Cancer Screening-PSA 08/21/2025, 02/03/2023, 11/20/2021, Additional history exists Regular Well Visit/Exam 18-64 08/21/2025, 02/03/2023, 12/25/2021, Additional history exists Colon Cancer Screening-Colonoscopy 06/17/2028 06/17/2018 Colon Cancer Screening-CT Colonography Discontinued 06/17/2018 Colon Cancer Screening-DNA Stool Discontinued 06/17/20 Colon Cancer Screening-FIT Discontinued 06/17/2018 Colon Cancer Screening-Sigmoidoscopy Discontinued 06/17/2018 Zoster Vaccine Completed 02/14/2022, 12/13/2021 Hepatitis B Screening Completed 08/21/2024 Hepatitis C Screening Completed 08/21/2024 Medical Devices Implanted Type Area Residential Green Building Designer Device Identifier Shelf Expiration Date Model / Serial / Lot Bb Left: Hand [employer] Attune Cementless Rotate Platform Knee 10 Baseplate Tibial [id number] - [id number] - [id number] Implanted:Qty: 1 on 05/07/2022 by Omari Will MD at [facility] Right: Knee [employer] 08/26/2031 [id number] / [id number] / [id number] [employer] Attune Cruciate Retain Cementless Knee Right 9 Component Femoral [id number] - [id number] - [id number] Implanted:Qty: 1 on 05/07/2022 by Omari Will MD at [facility] Right: Knee [employer] 08/26/2031 [id number] / [id number] / [id number] [employer] Attune 10mm Cruciate Retaining Rotate Platform Knee 9 Insert [id number] - [id number] - [id number] Implanted:Qty: 1 on 05/07/2022 by Omari Will MD at [facility] Right: Knee [employer] 03/26/2025 [id number] / [id number] / [id number] [employer] Attune Fb Tib Base Sz 10 Por [id number] - [id number] Implanted:Qty: 1 on 06/29/2023 by Omari Will MD at [facility] Left: Knee [employer] 02/24/2033 [id number] / / [id number] [employer] Attune Cruciate Retain Cementless Knee Left 9 Component Femoral [id number] - [id number] Implanted:Qty: 1 on 06/29/2023 by Omari Will MD at [facility] Left: Knee [employer] 12/25/2032 [id number] / / [id number] [employer] Insert Tibial Knee Fixed Lm Posterior Stabilized Attune 7mm Size 9 Polyethylene [id number] - [id number] Implanted:Qty: 1 on 06/29/2023 by Omari Will MD at [facility] Left: Knee [employer] [id number] 01/24/2031 [id number] / / [id number] Procedures Procedure Name Priority Date/Time Associated Diagnosis Comments AUDBASE RESULTS 07/02/2025 10:44 AM CDT RADIOLOGY EVENT Schedule Routine, Read Routine (OP Routine) 07/02/2025 10:13 AM CDT Vestibular schwannoma (HCC) MRI INTERNAL AUDITORY CANAL INCL BRAIN W WO CONTRAST Schedule Routine, Read Routine (OP Routine) 07/02/2025 10:13 AM CDT Vestibular schwannoma (HCC) XR HAND LEFT 2 VIEWS Schedule Routine, Read Routine (OP Routine) 07/02/2025 8:41 AM CDT Vestibular schwannoma (HCC) HEPATITIS C ANTIBODY Routine 08/21/2024 10:07 AM VALVE ASSEMBLER Need for hepatitis B screening test PSA SCREEN Routine 08/21/2024 10:07 AM VALVE ASSEMBLER Prostate cancer screening COLONOSCOPY 06/17/2018 8:58 AM CDT from Last 3 Months or Most Recently Relevant to Health Maintenance Results * AudBase Results (07/02/2025 10:44 AM CDT) Provider Scanning AUDIOLOGY SERVICES ORDERABLES Final Result * Radiology Event (07/02/2025 10:13 AM CDT) [...] MRI of the internal auditory canals on [facility] this morning. 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 He was offered 3 options: further evaluation in the emergency department, outpatient evaluation in a urgent care, or close follow-up with his primary care physician. After discussing the benefits of each, the patient and his elected for close follow up with his primary care physician. The patient was provided with ice packs for cooling. He was brought to his next appointment at [facility] by wheelchair by the staff. Actions: See above The highest level of care provided Vital performed/Monitoring Procedure Note Rickey Jonas MD - 07/02/2025 EXAMINATION: General Radiology Event Report DATE of EVENT: 07/02/2025 I was asked to see Vik Capone after a left ankle injury. Event: This was a other, see below: The patient underwent a MRI of the internal auditory canals on [facility] this morning. 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 He was offered 3 options: further evaluation in the emergency department, outpatient evaluation in a urgent care, or close follow-up with his primary care physician. After discussing the benefits of each, the patient and his elected for close follow up with his primary care physician. The patient was provided with ice packs for cooling. He was brought to his next appointment at [facility] by wheelchair by the staff. Actions: See [...] by: Chayo Vick M.D. Martín Batres MD IM MRI PROCEDURES Enriqueta l Result * XR Hand Left 2 Views (07/02/2025 [...] it. Electronically signed by: Kvng Sneed M.D. us Tommie Costa MD IMG XR PROCEDURES Final Result * PSA screen (08/21/2024 10:07 AM VALVE ASSEMBLER) PSA-Total 0.45 <=3.90 ng/mL Comment: Interpretive Data AGE SEX REFERENCE INTERVAL 0 minutes-150 years Female None 0 minutes-49 years Male None 50-59 years Male 0-3.90 60-69 years Male 0-5.40 70-79 years Male 0-6.20 80-150 years Male 0-6.20 The Regine PSA Total assay procedure was used. Results from different manufacturers or methods may not be comparable. Serial testing should be performed using the same method. Current interpretive data last revised 22. Blood 08/21/2024 10:0 7 AM VALVE ASSEMBLER 08/21/2024 10:43 AM VALVE ASSEMBLER us Jose Phelan MD LAB BLOOD ORDERABLES Final Resul t [facility] [place]) [address] [facility] [place] [address] * Hepatitis C antibody Blood (08/21/2024 10:07 AM VALVE ASSEMBLER) Hep C Ab Nonreactive Nonreactive Comment: Interpretive Data Nonreactive: Antibodies to HCV not detected. Does NOT exclude the possibility of recent exposure to HCV. Equivocal: Equivocal for HCV antibodies. Supplemental molecular testing will be automatically performed to determine infection status in accordance with current CDC screening recommendations. Reactive: Positive for HCV antibodies. This may represent current or past HCV infection. Supplemental molecular testing will be automatically performed to determine current infection status in accordance with current CDC screening recommendations. Interpretive data was last revised on 2019. Testing performed by: [facility], [address] [place] [address]., [id number] Blood 08/21/2024 10:0 7 AM VALVE ASSEMBLER 08/21/2024 11:33 AM VALVE ASSEMBLER Jose Phelan MD LAB MICROBIOLOGY - GENERAL ORDER KEMI Final Result [facility]) [address] [place] [address] * COLONOSCOPY (06/17/2018 8:58 AM CDT) Anatomical Region Laterality Modality Other Narrative Procedure Note Oswald Yuen MD - 06/17/2018 8:58 AM CDT [facility] Patient Name: Vik Capone Procedure Date: 06/17/2018 8:58 AM Date of : 1970 Admit Type: Outpatient Age: 48 Gender: Male Attending MD: Oswald Yuen MD Room: [facility] ENDOSCOPY ROOM 2 Note Status: Finalized Patient Profile: 48 WM, no family h/o colon cancer, screening. Procedure: Colonoscopy Indications: Screening for colorectal malignant neoplasm, This is the patient's first colonoscopy Referring MD: Kody Lopez MD Providers: Oswald Yuen MD Impression: - The entire examined colon is normal. - Internal hemorrhoids. - No specimens collected. Recommendation: - Repeat colonoscopy in 10 years for screeningpurposes. Medicines: Monitored Anesthesia Care Complications: No immediate complications. Estimated Blood Loss: Estimated blood loss: none. Procedure: Pre-Anesthesia Assessment: - Prior to the procedure, a History and Physical was performed, and patient medications and allergieswere reviewed. The patient's tolerance of previous anesthesia was also reviewed. The risks and benefitsof the procedure and the sedation options and riskswere discussed with the patient. All questions were answered, and informed consent was obtained. Prior Anticoagulants: The patient has taken no previous anticoagulant or antiplatelet agents. ASA Grade Assessment: II - A patient with mild systemicdisease. After reviewing the risks and benefits, the patientwas deemed in satisfactory condition to undergo the procedure. The benefits, risks and alternatives of theprocedure and sedation were discussed and informed consent was obtained. All questions were answered. Please referto the signed informed consent document in the medical record. The scope was passed under direct vision.The Pediatric Colonoscope [id number]-H190L [id number] was introduced through the anus and advanced to the the cecum, identified by appendiceal orifice andileocecal valve. The colonoscopy was performed without difficulty. The patient tolerated the procedurewell. The quality of the bowel preparation wasexcellent. Findings: The perianal and digital rectal examinations were normal. The cecum appeared normal. The colon (entire examined portion) appeared normal. No polyps and no mass lesions. Internal hemorrhoids were found during retroflexion. The hemorrhoids were medium-sized. Electronically signed by Oswald Yuen M.D. Oswald Yuen MD 06/17/2018 9:32:20 AM Number of Addenda: 0 Note Initiated On: 06/17/2018 8:58 AM Procedure Code(s): --- Professional --- 63567, Colonoscopy, flexible; diagnostic, including collection of specimen(s) by brushing or washing, when performed (separateprocedure) Diagnosis Code(s): --- Professional --- Z12.11, Encounter for screening for malignant neoplasm of colon K64.8, Other hemorrhoids CPT copyright 2017 [employer]. All rights reserved. The codes documented in this report are preliminary and upon quality coordinator reviewmay be revised to meet current compliance requirements. Recognized by the [place] [employer] for promoting quality in endoscopy Oswald Yuen MD ENDOSCOPY PROCEDURES Final Result from Last 3 Months or Most Recently Relevant to [place] [address] [employer] Advance Directives For more information, please contact: [phone] * Full Code (Latest Code Status on File) Date Activated Date Inactivated Comments 06/29/2023 11:48 AM 06/29/2023 7:30 PM * Full Code Date Activated Date Inactivated Comments 05/07/2022 11:41 AM 05/07/2022 7:34 PM * Full Code Date Activated Date Inactivated Comments 06/17/2018 8:08 AM 06/17/2018 12:15 PM Care Teams Supervisor Rod Placing Relationship Specialty Start Date End Date Rod Duran MD [address] [place] [place] [address] PCP - General Family Practice 07/02/25 Louis Ley, PT Physical Therapist Physical Therapy 04/20/22 Luis Strange, DIE SETTER [address] [place] [address] [address] POSADAS [address] [place] [id number] Nurse Practitioner Nurse Practitioner 05/07/22
--- OUTSIDE RECORDS SUMMARY | 2025-07-02 15:44 | XMS_ITS | Clinical Summary ---
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 Gender Identity Not on file Sexual Orientation Not on file Plan of Treatment Health Maintenance Due Date Last Done Comments CT Colonography 1969 Colonoscopy 1969 Colorectal Cancer Screening 1969 Fecal DNA Test 1969 Lab-Cholesterol Screening 1969 Lab-Hepatitis C Screening 1969 Sigmoidoscopy 1969 Annual Wellness Visit 1987 Hepatitis B Vaccine (1 of 3 - 19+ 3-dose series) 1988 Tetanus/Pertussis Vaccine Teen/Adult (1 - Tdap) 1988 FOBT/FIT 1989 Pneumococcal Vaccines 50+ (1 of 1 - PCV) 2019 Zoster (Shingles) Vaccine 50 + (1 of 2) 2019 COVID-19 Vaccine ( - 2023-2 5 season) 2025 Influenza Vaccine (#1) 2025 RSV Adult (1 - 1-dose 75+ series) 2044 HIB Vaccine Aged Out No longer eligi ble based on patient's age to complete this topic HPV Vaccine (9-26yo & Shared Decision 27-45yo) Aged Out No longer eligible b ased on patient's age to complete this topic Hepatitis A Vaccine Aged Out No longe r eligible based on patient's age to complete this topic IPV Vaccine Aged Out No longer eligi ble based on patient's age to complete this topic Meningococcal Conjugate Vaccine Aged Out No longer eligible based on patient's age to complete this topic RSV < 20 Months Aged Out No longer el igible based on patient's age to complete this topic Care Teams Concrete Analyst Relationship Specialty Start Date End Date Patient, None Per PCP - General 02/12/20
--- NOTE | 2025-07-02 16:21 | PC.NURSE ---
is having son bring shorts to change into prior to ocl.
== END 2025-07-02 17:08 | disposition home or self-care (01) ==
PROVIDERS: Emergency Provider Nurse Practitioner; PCP Family Medicine
DX: S92.352A Displaced fracture of fifth metatarsal bone, left foot, initial encounter for closed fracture (principal); S82.62XA Displaced fracture of lateral malleolus of left fibula, initial encounter for closed fracture; X50.9XXA Other and unspecified overexertion or strenuous movements or postures, initial encounter; I10 Essential (primary) hypertension; Z86.018 Personal history of other benign neoplasm
CPT/HCPCS: 29515; 73610; 73630; 99204; G0463